=== PATIENT | male | born 1945 | race Caucasian/White ===

== ENCOUNTER → 2023-06-14 10:58 | Outpatient (REF) | payer MEDICARE, OTHER, SELFPAY ==
[2023-06-14 12:08] LABS: ALT (SGPT) 65 U/L (0-50); AST (SGOT) 88 U/L (17-59); Albumin 4.9 g/dl (3.5-5.0); Alkaline Phosphatase 96 U/L (38-126); Blood Urea Nitrogen 25 mg/dl (9-20); Calcium 9.3 mg/dl (8.4-10.2); Carbon Dioxide 26 mmol/L (22-30); Chloride 100 mmol/L (98-107); Glucose 212 mg/dl (70-99); HDL Cholesterol 55 mg/dl; Potassium 4.5 mmol/L (3.5-5.1); Sodium 134 mmol/L (135-145); Total Bilirubin 0.7 mg/dl (0.2-1.3); Total Cholesterol 287 mg/dl (50-199); Total Protein 7.5 g/dl (6.3-8.2); eGFR 47.95
[2023-06-14 12:21] LABS: Triglyceride 449 mg/dl (10-149)
[2023-06-14 12:45] LABS: LDL Cholesterol, Direct 126 mg/dl
== END ==
LOC: REG 10:58
PROVIDERS: ATTENDING PHYSICIAN Nuclear Medicine Nuclear Cardiology; FAMILY PHYSICIAN Family Medicine
DX: E78.2 Mixed hyperlipidemia (principal)
CPT/HCPCS: 36415; 80053; 80061; 83721

== ENCOUNTER → 2023-08-17 08:34 | Outpatient (REF) | payer MEDICARE, OTHER, SELFPAY | LOC: RCS 08:34 | PROVIDERS: ATTENDING PHYSICIAN Nuclear Medicine Nuclear Cardiology; FAMILY PHYSICIAN Family Medicine | DX: Z98.890 Other specified postprocedural states (principal); I48.0 Paroxysmal atrial fibrillation; I42.0 Dilated cardiomyopathy; I36.1 Nonrheumatic tricuspid (valve) insufficiency | CPT/HCPCS: 93306 ==

== ENCOUNTER → 2023-10-22 09:29 | Outpatient (REF) | payer MEDICARE, OTHER, SELFPAY ==
[2023-10-22 11:01] LABS: ALT (SGPT) 25 U/L (0-50); AST (SGOT) 34 U/L (17-59); Albumin 4.7 g/dl (3.5-5.0); Alkaline Phosphatase 72 U/L (38-126); Blood Urea Nitrogen 31 mg/dl (9-20); Calcium 9.2 mg/dl (8.4-10.2); Carbon Dioxide 25 mmol/L (22-30); Chloride 104 mmol/L (98-107); Glucose 144 mg/dl (70-99); HDL Cholesterol 54 mg/dl; LDL Cholesterol, Calculated 97 mg/dl; Sodium 139 mmol/L (135-145); Total Bilirubin 0.7 mg/dl (0.2-1.3); Total Cholesterol 183 mg/dl (50-199); Triglyceride 162 mg/dl (10-149); Very Low Density Lipoprotein 32 mg/dl (0-30); eGFR 38.53
[2023-10-22 11:12] LABS: Glycohemoglobin (HgbA1c) 6.9 % (4.0-5.6)
[2023-10-22 11:13] LABS: LDL Cholesterol, Direct 105 mg/dl
[2023-10-22 11:30] LABS: PSA, Total - Diagnostic 2.29 ng/ml (0.0-4.0)
== END ==
LOC: REG 09:29
PROVIDERS: ATTENDING PHYSICIAN Nuclear Medicine Nuclear Cardiology; FAMILY PHYSICIAN Family Medicine
DX: E11.9 Type 2 diabetes mellitus without complications (principal); E11.65 Type 2 diabetes mellitus with hyperglycemia; E78.2 Mixed hyperlipidemia; I15.1 Hypertension secondary to other renal disorders; N40.1 Benign prostatic hyperplasia with lower urinary tract symptoms
CPT/HCPCS: 36415; 80053; 80061; 83036; 83721; 84153

== ENCOUNTER → 2024-07-10 11:51 | Outpatient (REF) | payer MEDICARE, OTHER, SELFPAY ==
[2024-07-10 13:01] LABS: % Basophils 0.9 % (0-2); % Eosinophils 2.2 % (0-6); % Immature Granulocytes 1.6 % (0-0.5); % Lymphocytes 32.4 % (20.5-51.1); % Monocytes 8.9 % (1.7-9.3); Absolute Eosinophils 0.1 10^3/uL (0-0.7); Absolute Immature Granulocytes 0.1 10^3/uL (0-0.05); Absolute Lymphocytes 1.5 10^3/uL (1.2-3.4); Absolute Monocytes 0.4 10^3/uL (0.1-0.6); Absolute Neutrophils 2.4 10^3/uL (1.4-6.5); Hematocrit 36.8 % (39.0-52.0); Hemoglobin 12.4 g/dL (13.0-18.0); Mean Corp Hgb Conc. 33.7 g/dL (33.0-37.0); Mean Corpuscular Hgb 31.4 pg (27.0-31.0); Mean Corpuscular Volume 93.2 fL (80.0-94.0); Mean Platelet Volume 10.7 fL (7.4-10.4); Nucleated Red Blood Cells % 0 % (-); Platelet Count 150 10^3/uL (130-400); Red Blood Cell Count 3.95 10^6/uL (4.70-6.10); White Blood Cell Count 4.5 10^3/uL (4.8-10.8)
[2024-07-10 13:26] LABS: Glycohemoglobin (HgbA1c) 7.4 % (4.0-5.6)
[2024-07-10 13:28] LABS: Microalbumin, Random Urine 4.2 mg/dl (0.6-1.7)
[2024-07-10 13:46] LABS: Blood Urea Nitrogen 34 mg/dl (9-20); Chloride 102 mmol/L (98-107); Glucose 116 mg/dl (70-99); Potassium 5.3 mmol/L (3.5-5.1); Sodium 139 mmol/L (135-145); eGFR 38.29
[2024-07-10 13:47] LABS: ALT (SGPT) 26 U/L (0-50); AST (SGOT) 36 U/L (17-59); Albumin 5.2 g/dl (3.5-5.0); Alkaline Phosphatase 71 U/L (38-126); Calcium 10.1 mg/dl (8.4-10.2); Carbon Dioxide 23 mmol/L (22-30); HDL Cholesterol 46 mg/dl; LDL Cholesterol, Calculated 84 mg/dl; Total Cholesterol 188 mg/dl (50-199); Total Protein 7.7 g/dl (6.3-8.2); Triglyceride 290 mg/dl (10-149); Very Low Density Lipoprotein 58 mg/dl (0-30)
[2024-07-10 14:04] LABS: TSH 3.17 uIU/ml (0.47-4.68)
== END ==
LOC: REG 11:51
PROVIDERS: ATTENDING PHYSICIAN Nuclear Medicine Nuclear Cardiology; FAMILY PHYSICIAN Family Medicine
DX: E78.2 Mixed hyperlipidemia (principal); I15.1 Hypertension secondary to other renal disorders; E03.4 Atrophy of thyroid (acquired); E11.65 Type 2 diabetes mellitus with hyperglycemia
CPT/HCPCS: 36415; 80053; 80061; 82043; 83036; 84443; 85025

== ENCOUNTER → 2025-01-11 06:40 | Outpatient (REF) | payer MEDICARE, OTHER, SELFPAY ==
[2025-01-11 07:33] LABS: ALT (SGPT) 17 U/L (0-50); AST (SGOT) 28 U/L (17-59); Albumin 4.8 g/dl (3.5-5.0); Alkaline Phosphatase 44 U/L (38-126); Blood Urea Nitrogen 34 mg/dl (9-20); Calcium 9.8 mg/dl (8.4-10.2); Carbon Dioxide 26 mmol/L (22-30); Chloride 104 mmol/L (98-107); Glucose 128 mg/dl (70-99); HDL Cholesterol 71 mg/dl; LDL Cholesterol, Calculated 54 mg/dl; Potassium 4.7 mmol/L (3.5-5.1); Sodium 139 mmol/L (135-145); Total Protein 7.5 g/dl (6.3-8.2); Very Low Density Lipoprotein 17 mg/dl (0-30); eGFR 35.88
== END ==
LOC: RCS 06:40
PROVIDERS: ATTENDING PHYSICIAN Nuclear Medicine Nuclear Cardiology; FAMILY PHYSICIAN Family Medicine
DX: I48.92 Unspecified atrial flutter (principal); Z98.890 Other specified postprocedural states; I42.0 Dilated cardiomyopathy; I36.1 Nonrheumatic tricuspid (valve) insufficiency; E78.2 Mixed hyperlipidemia
CPT/HCPCS: 36415; 80053; 80061; 93306